=== PATIENT | male | born 1945 | race Caucasian/White ===

== ENCOUNTER 2017-05-24 09:22 | Day surgery (SDC) | payer MEDICARE ==
[~2017-05-24] VITALS: Ht 172.7 cm; Wt 98.3 kg
[~2017-05-24 09:22] MED LIST: (None)20 M1; ALEN70 PO; AMOCLA875 PO; ASPI325 PO; ASPI81CH PO; Aspirin EC81 MG; BGALA3.3 PO; CHOL10002 PO; DAPS100 PO; DOCU100 PO; FLUC200 PO; FLUO.05TO TOP; GUAI600T33; LACTAID3000 UNIT PO; Levaquin750 MG PO; Lopressor 25 mg25 MG PO; OMEP20ER PO; PROP150 PO; Tambocor100 MG PO; Toprol Xl25 MG PO
[2017-05-24] MEDS ORDERED: OCUVITE EYE +1 EACH (09:54)
[2017-05-24] MEDS ORDERED: CIPR500 (09:54)
== END 2017-05-24 11:35 | disposition home or self-care (01) ==
LOC: ORSCSDS 09:22
PROVIDERS: Orthopaedic Surgery
PROC: 01N54ZZ Release Median Nerve, Percutaneous Endoscopic Approach (ICD-10-PCS; principal; 2017-05-24 10:30)
DX: G56.01 Carpal tunnel syndrome, right upper limb (principal); I10 Essential (primary) hypertension; I48.91 Unspecified atrial fibrillation; E78.5 Hyperlipidemia, unspecified; Z79.899 Other long term (current) drug therapy
CPT/HCPCS: J0171; J0690; J2250; J7120

== ENCOUNTER → 2017-07-24 | Outpatient (CLI) | payer MEDICARE ==
[~2017-07-24] MED LIST changes: +CIPR500; +OCUVITE EYE +1 EACH
== END | disposition home or self-care (01) ==
LOC: LAB SHORT 10:21 → PLD 10:21
DX: L82.1 Other seborrheic keratosis (principal)
CPT/HCPCS: 88305

== ENCOUNTER → 2017-11-30 | Outpatient (CLI) | payer MEDICARE ==
[2017-11-30 11:27] LABS: Bacteria Not Seen /hpf; Squamous Epithelial Cells Rare /hpf (Few); White Blood Cells, Urine Not Seen /hpf (0-5)
== END ==
LOC: LAB SHORT 08:40 → LAB 08:40
DX: I77.6 Arteritis, unspecified (principal)
CPT/HCPCS: 81015

== ENCOUNTER → 2018-01-24 | Outpatient (CLI) | payer MEDICARE | END | disposition home or self-care (01) | LOC: PLD 10:08 → LAB SHORT 10:08 | DX: D04.22 Carcinoma in situ of skin of left ear and external auricular canal (principal) | CPT/HCPCS: 88305 ==

== ENCOUNTER → 2018-07-24 | Outpatient (CLI) | payer MEDICARE | END | disposition home or self-care (01) | LOC: LAB SHORT 10:07 → PLD 10:07 | DX: L90.5 Scar conditions and fibrosis of skin (principal) | CPT/HCPCS: 88305 ==

== ENCOUNTER 2018-10-21 08:50 | Day surgery (SDC) | payer MEDICARE ==
--- NOTE | 2018-10-21 12:09 | NUR ---
D/C INSTRUCTIONS GIVEN WITH STATED UNDERSTANDING. OPPORTUNITY FOR QUESTIONS PROVIDED.
--- NOTE | 2018-10-21 12:20 | NUR ---
PATIENT TO RADIOLOGY FOR RE-SCAN WITH TECH VIA GURNEY.
== END 2018-10-21 12:31 | disposition home or self-care (01) ==
LOC: CT 08:50
PROVIDERS: Radiology Diagnostic Radiology
PROC: 0TB03ZX Excision of Right Kidney, Percutaneous Approach, Diagnostic (ICD-10-PCS; principal; 2018-10-21 10:00)
DX: N18.3 Chronic kidney disease, stage 3 (moderate) (principal); I48.0 Paroxysmal atrial fibrillation; K21.9 Gastro-esophageal reflux disease without esophagitis; Z79.899 Other long term (current) drug therapy; Z79.82 Long term (current) use of aspirin; Z92.21 Personal history of antineoplastic chemotherapy; I77.6 Arteritis, unspecified
CPT/HCPCS: 50200; 77012; 88300; 88305; 88313; 88346; 88348; 88350

== ENCOUNTER → 2020-02-11 | Outpatient (CLI) | payer MEDICARE | END | disposition home or self-care (01) | LOC: LAB SHORT 11:05 → PLD 11:05 | DX: D48.5 Neoplasm of uncertain behavior of skin (principal) | CPT/HCPCS: 88305 ==

== ENCOUNTER 2020-09-18 11:16 | Emergency (ER) | payer MEDICARE ==
[~2020-09-18] VITALS: Ht 195.6 cm; Wt 90.7 kg
[2020-09-18 11:34] LABS: BASOPHILS ABSOLUTE AUTO 0.02 K/mm3 (0.00-0.23); BASOPHILS PERCENT AUTO 0 % (0-2); EOSINOPHILS ABSOLUTE AUTO 0.03 K/mm3 (0.00-0.68); EOSINOPHILS PERCENT AUTO 0 % (0-6); Hematocrit 35.9 % (37.0-53.0); Hemoglobin 11.5 g/dL (13.5-17.5); IMMATURE GRAN ABSOLUTE AUTO 0.07 K/mm3 (0.00-0.10); IMMATURE GRAN PERCENT AUTO 1 % (0-1); LYMPHOCYTES ABSOLUTE AUTO 1.58 K/mm3 (0.84-5.20); LYMPHOCYTES PERCENT AUTO 19 % (21-46); MONOCYTES ABSOLUTE AUTO 0.87 K/mm3 (0.16-1.47); MONOCYTES PERCENT AUTO 11 % (4-13); Mean Corpuscular HGB 33.3 pg (26.0-34.0); Mean Corpuscular Volume 104 fL (80-100); Mean Platelet Volume 10.7 fL (9.1-12.4); NEUTROPHILS ABSOLUTE AUTO 5.57 K/mm3 (1.96-9.15); NEUTROPHILS PERCENT AUTO 68 % (41-73); Platelet Count 201 K/mm3 (150-400); RDW Coefficient Variation 13.2 % (11.7-14.2); RDW Standard Deviation 50.3 fL (35.1-46.3); Red Blood Cell Count 3.45 M/mm3 (4.30-5.90); White Blood Cell Count 8.14 K/mm3 (4.00-11.30)
[2020-09-18] MEDS ORDERED: Tambocor100 MG PO (11:47)
[2020-09-18] MEDS ORDERED: ASPI325 PO (11:47)
[2020-09-18] MEDS ORDERED: DUTA.5 PO (11:47)
[2020-09-18] MEDS ORDERED: Prednisone10 MG PO (11:47)
[2020-09-18] MEDS ORDERED: DAPS100 (11:47)
[2020-09-18] MEDS ORDERED: HYDCHL25 (11:48)
[2020-09-18] MEDS ORDERED: TUMS500 MG PO (11:48)
[2020-09-18] MEDS ORDERED: OMEGA-3 + VITA200 ML PO (11:49)
[2020-09-18] MEDS ORDERED: VITAMIN D310 MC4 PO (11:49)
[2020-09-18 11:56] LABS: Alanine Aminotransfer (ALT/SGP 96 U/L (12-78); Albumin, Blood 3.7 g/dL (3.4-5.0); Albumin/Globulin Ratio 1.3 (0.8-1.8); Alk Phos 68 U/L (50-136); Anion Gap 6 mmol/L (6-16); Aspartate Aminotrans (AST/SGOT 43 U/L (12-37); Bilirubin, Total 0.8 mg/dL (0.1-1.0); Blood Urea Nitrogen 37 mg/dL (8-24); Bun/Creatinine Ratio 16.9 (12.0-20.0); CO2, Blood 29 mmol/L (21-32); Chloride, Blood 106 mmol/L (98-108); Creatinine, Blood 2.19 mg/dL (0.60-1.20); Globulin, Blood 2.9 g/dL (2.2-4.0); Glomerular Filtration Rate 31 (60-); Glucose, Blood 102 mg/dL (70-99); Magnesium, Blood 2.4 mg/dL (1.6-2.4); Potassium, Blood 4.1 mmol/L (3.5-5.5); Sodium, Blood 141 mmol/L (136-145); Total Protein, Blood 6.6 g/dL (6.4-8.2); Troponin I <0.015 ng/mL (0.000-0.040)
[2020-09-18 12:25] LABS: International Normalized Ratio 0.91; Prothrombin Time Results 9.9 Sec (9.7-11.5)
[2020-09-29] MEDS ORDERED: Aspir 8181 MG PO (11:06)
== END 2020-09-18 15:44 | disposition home or self-care (01) ==
LOC: ER 11:16
PROVIDERS: Student in an Organized Health Care Education/Training Program
DX: R55 Syncope and collapse (principal); I10 Essential (primary) hypertension; I48.91 Unspecified atrial fibrillation; Z79.82 Long term (current) use of aspirin; Z79.899 Other long term (current) drug therapy
CPT/HCPCS: 71045; 80053; 83735; 84484; 85025; 85610; 85730; 93005; 93010; 99284-25; A9270

== ENCOUNTER 2020-10-05 08:37 | Day surgery (SDC) | payer MEDICARE ==
[~2020-10-05] VITALS: Ht 195.6 cm; Wt 88.4 kg
[~2020-10-05 08:37] MED LIST changes: +Aspir 8181 MG PO; +DAPS100; +DUTA.5 PO; +HYDCHL25; +OMEGA-3 + VITA200 ML PO; +Prednisone10 MG PO; +TUMS500 MG PO; +VITAMIN D310 MC4 PO
--- NOTE | 2020-10-05 09:36 | NUR ---
10/05/20 0936 Gabrielel Gonzalez History, Chart, Medications and Allergies reviewed before start of procedure.PATIENT DETERMINED TO BE ASA APPROPRIATE FOR PROPOFOL SEDATION PRIOR TO START OF PROCEDURE BY .MONITOR INTACT WITH CONTINUOUS PULSE OXIMETRY AND INTERMITTENT BP.3-LEAD EKG REVIEWED WITH PHYSICIAN PRIOR TO START OF PROCEDURE.O2 VIA N/C INTACT THROUGHOUT SEDATION/PROCEDURE.
--- NOTE | 2020-10-05 10:45 | NUR ---
Patient up to Ambulate independently. Gait steady. Discharge instructions reviewed with patient. Patient verbalizes understanding. Copy given to patient to take home. Discharged via wheelchair to private car for ride home.
== END 2020-10-05 23:26 | disposition home or self-care (01) ==
LOC: ORSCMMR 08:37 → ORD 09:30 → ORSCMMR 23:26
PROVIDERS: Internal Medicine Gastroenterology
PROC: 0DBK8ZX Excision of Ascending Colon, Via Natural or Artificial Opening Endoscopic, Diagnostic (ICD-10-PCS; principal; 2020-10-05 09:30)
PROC: 0DBL8ZX Excision of Transverse Colon, Via Natural or Artificial Opening Endoscopic, Diagnostic (ICD-10-PCS; principal; 2020-10-05 09:30)
PROC: 0DBN8ZX Excision of Sigmoid Colon, Via Natural or Artificial Opening Endoscopic, Diagnostic (ICD-10-PCS; principal; 2020-10-05 09:30)
DX: Z12.11 Encounter for screening for malignant neoplasm of colon (principal); Z86.010 Personal history of colon polyps; D12.3 Benign neoplasm of transverse colon; D12.2 Benign neoplasm of ascending colon; D12.5 Benign neoplasm of sigmoid colon; I48.0 Paroxysmal atrial fibrillation; K21.9 Gastro-esophageal reflux disease without esophagitis; Z79.899 Other long term (current) drug therapy; Z79.82 Long term (current) use of aspirin
CPT/HCPCS: 88305; J2704; J7120

== ENCOUNTER 2021-11-09 07:59 | Day surgery (SDC) | payer MEDICARE ==
[~2021-11-09] VITALS: Ht 195.6 cm; Wt 90.3 kg
[~2021-11-09 07:59] MED LIST changes: -HYDCHL25; +HYDCHL25 PO
--- NOTE | 2021-11-09 08:32 | NUR ---
Ambulatory in Day Surgery. History, Chart, Medications and Allergies reviewed before start of procedure. Lungs clear T/O to Auscultation. Patient States Post-Procedure ride home has been arranged WITH DISHA.
--- NOTE | 2021-11-09 09:00 | NUR ---
11/09/21 0900 Miranda Lopez HISTORY, CHART, MEDICATIONS AND ALLERGIES REVIEWED BEFORE START OF PROCEDURE. PATIENT CONFIRMS NPO STATUS AND AGREES WITH SCHEDULED PROCEDURE. 3-LEAD EKG REVIEWED WITH PHYSICIAN PRIOR TO START OF PROCEDURE. MONITOR INTACT WITH CONTINUOUS PULSE OXIMETRY,CAPNOGRAPHY, 3-LEAD EKG, INTERMITTENT BP. SUPPLEMENTAL O2 TO BE TITRATED THROUGHOUT PROCEDURE TO MAINTAIN O2 SATURATION ABOVE 90%. PATIENT DETERMINED TO BE ASA APPROPRIATE FOR PROPOFOL SEDATION PRIOR TO START OF PROCEDURE BY DR. DELGADO
--- NOTE | 2021-11-09 10:15 | NUR ---
PT TOLERATING SIPS OF WATER, BP IMPROVING. PT DRESSED, DENIES DIZZINESS. Discharged via wheelchair to private car for ride home.
== END 2021-11-09 10:17 | disposition home or self-care (01) ==
LOC: ORSCMMR 07:59 → ORD 09:00 → ORSCMMR 10:17
PROVIDERS: Internal Medicine Gastroenterology
PROC: 0DBL8ZX Excision of Transverse Colon, Via Natural or Artificial Opening Endoscopic, Diagnostic (ICD-10-PCS; principal; 2021-11-09 09:00)
PROC: 0DBN8ZX Excision of Sigmoid Colon, Via Natural or Artificial Opening Endoscopic, Diagnostic (ICD-10-PCS; principal; 2021-11-09 09:00)
PROC: 0DBK8ZX Excision of Ascending Colon, Via Natural or Artificial Opening Endoscopic, Diagnostic (ICD-10-PCS; principal; 2021-11-09 09:00)
PROC: 0DBM8ZX Excision of Descending Colon, Via Natural or Artificial Opening Endoscopic, Diagnostic (ICD-10-PCS; principal; 2021-11-09 09:00)
DX: Z86.010 Personal history of colon polyps (principal); D12.3 Benign neoplasm of transverse colon; D12.2 Benign neoplasm of ascending colon; D12.4 Benign neoplasm of descending colon; D12.5 Benign neoplasm of sigmoid colon; I48.0 Paroxysmal atrial fibrillation; K21.9 Gastro-esophageal reflux disease without esophagitis; Z79.01 Long term (current) use of anticoagulants; N40.0 Benign prostatic hyperplasia without lower urinary tract symptoms; Z79.899 Other long term (current) drug therapy
CPT/HCPCS: 88305; J2250; J2704; J7120

== ENCOUNTER 2022-11-21 08:09 | Day surgery (SDC) | payer MEDICARE ==
[~2022-11-21] VITALS: Ht 195.6 cm; Wt 91.4 kg
[2022-11-21] VITALS (18 sets, daily range): BP systolic 97–150; BP diastolic 60–102
[~2022-11-21 08:09] MED LIST changes: +Calcium Carbon500 MG PO; +FISH OIL GUMMI1 EAC1 PO; +Vitamin C100 M1 PO
--- NOTE | 2022-11-21 09:13 | NUR ---
Ambulatory in Day Surgery History, Chart, Medications and Allergies reviewed before start of procedure. Pre-Op teaching done. Pt verbalizes understanding. Patient States Post-Procedure ride home has been arranged.
--- NOTE | 2022-11-21 09:44 | NUR ---
11/21/22 0944 Bria Lewis HISTORY, CHART, MEDICATIONS AND ALLERGIES REVIEWED BEFORE START OF PROCEDURE. PATIENT CONFIRMS NPO STATUS AND AGREES WITH SCHEDULED PROCEDURE. 3-LEAD EKG REVIEWED WITH PHYSICIAN PRIOR TO START OF PROCEDURE. MONITOR INTACT WITH CONTINUOUS PULSE OXIMETRY,CAPNOGRAPHY, 3-LEAD EKG, INTERMITTENT BP. SUPPLEMENTAL O2 TO BE TITRATED THROUGHOUT PROCEDURE TO MAINTAIN O2 SATURATION ABOVE 90%. PATIENT DETERMINED TO BE ASA APPROPRIATE FOR PROPOFOL SEDATION PRIOR TO START OF PROCEDURE BY DR. DELGADO. MALLAMPATI CLASS 1 AIRWAY: COMPLETE VISULATIZATION OF THE SOFT PALATE.
--- NOTE | 2022-11-21 10:24 | NUR ---
PT GROGGY, BUT ABLE TO MOVE IN BED AND FOLLOW COMMANDS. , DISHA, AT BEDSIDE AND TALKING WITH PERNELLTENT.
--- NOTE | 2022-11-21 10:40 | NUR ---
TOLERATING PO FLUIDS WELL
--- NOTE | 2022-11-21 10:41 | NUR ---
Discharge instructions reviewed with patient. Patient verbalizes understanding. Copy given to patient to take home. Patient up to Ambulate independently. Gait steady. Discharged via wheelchair to private car for ride home.
== END 2022-11-21 22:51 | disposition home or self-care (01) ==
LOC: ORSCMMR 08:09 → ORD 09:00 → ORSCMMR 22:51
PROVIDERS: Internal Medicine Gastroenterology
PROC: 0DBL8ZX Excision of Transverse Colon, Via Natural or Artificial Opening Endoscopic, Diagnostic (ICD-10-PCS; principal; 2022-11-21 09:00)
PROC: 0DBK8ZX Excision of Ascending Colon, Via Natural or Artificial Opening Endoscopic, Diagnostic (ICD-10-PCS; principal; 2022-11-21 09:00)
DX: Z86.010 Personal history of colon polyps (principal); D12.3 Benign neoplasm of transverse colon; D12.2 Benign neoplasm of ascending colon; I48.91 Unspecified atrial fibrillation; K21.9 Gastro-esophageal reflux disease without esophagitis; Z79.82 Long term (current) use of aspirin; Z79.899 Other long term (current) drug therapy
CPT/HCPCS: 88305; J2704; J7120

== ENCOUNTER 2024-12-17 07:05 | Day surgery (SDC) | payer MEDICARE ==
[~2024-12-17] VITALS: Ht 195.6 cm; Wt 93.2 kg
[~2024-12-17 07:05] MED LIST changes: +CELE100 PO; +DUTASTERIDE0.5 M3 PO; +TACR1 PO; +Triamcinolone A15 G2 TOP; +[UNRECOGNIZED DRUG - OTHER] SQ
[2024-12-17 07:40] VITALS: BP 133/85
--- NOTE | 2024-12-17 08:43 | NUR ---
12/17/24 0843 Corrine Meade History, Chart, Medications and Allergies reviewed before start of procedure.DR TERRELL PROVIDING ANESTHESIA
[2024-12-17 09:42] VITALS: BP 105/72
[2024-12-17 09:53] VITALS: BP 111/75
--- NOTE | 2024-12-17 10:03 | NUR ---
DC'D IV INTACT. VERBALIZED UNDERSTANDINGOD DC INSTRUCTIONS. DC'D VIA WC TO PRIVATE CAR WITH ATTORNEY LAW[employer]ER
== END 2024-12-17 10:00 | disposition home or self-care (01) ==
LOC: ORSCMMR 07:05 → ORD 08:00 → ORSCMMR 08:45 → ORD 08:45 → ORSCMMR 10:00
PROVIDERS: Internal Medicine Gastroenterology
PROC: 0DB48ZX Excision of Esophagogastric Junction, Via Natural or Artificial Opening Endoscopic, Diagnostic (ICD-10-PCS; principal; 2024-12-17 08:45)
PROC: 0DBL8ZX Excision of Transverse Colon, Via Natural or Artificial Opening Endoscopic, Diagnostic (ICD-10-PCS; principal; 2024-12-17 08:45)
PROC: 0DBM8ZX Excision of Descending Colon, Via Natural or Artificial Opening Endoscopic, Diagnostic (ICD-10-PCS; principal; 2024-12-17 08:45)
PROC: 0DBP8ZX Excision of Rectum, Via Natural or Artificial Opening Endoscopic, Diagnostic (ICD-10-PCS; principal; 2024-12-17 08:45)
DX: K21.00 Gastro-esophageal reflux disease with esophagitis, without bleeding (principal); Z12.11 Encounter for screening for malignant neoplasm of colon; Z86.0101 Personal history of adenomatous and serrated colon polyps; D12.3 Benign neoplasm of transverse colon; D12.4 Benign neoplasm of descending colon; K62.1 Rectal polyp; K22.2 Esophageal obstruction; I48.0 Paroxysmal atrial fibrillation; N40.0 Benign prostatic hyperplasia without lower urinary tract symptoms; I77.82 Antineutrophilic cytoplasmic antibody [ANCA] vasculitis; Z79.899 Other long term (current) drug therapy; Z79.82 Long term (current) use of aspirin
CPT/HCPCS: 88305; J2704; J7120